=== PATIENT | male | born 1960 | race Caucasian/White ===

== ENCOUNTER 2017-02-08 16:24 | Emergency (ER) | payer BC ==
[~2017-02-08] VITALS: Ht 193 cm; Wt 111.4 kg
[2017-02-08 16:25] VITALS: TEMP 98
[2017-02-08] MEDS ORDERED: FENTANYL 50MCG TD (17:27)
[2017-02-08] MEDS ORDERED: SYNTHROID0.3 MG PO (17:28)
[2017-02-08] MEDS ORDERED: SINGULAIR 110 MG/TAB PO (17:29)
[2017-02-08] MEDS ORDERED: FLEXERIL 1010 MG/TAB PO (17:29)
[2017-02-08] MEDS ORDERED: AMITRIPTYLINE H50 M1 PO (17:30)
[2017-02-08] MEDS ORDERED: NORCO 325 MG-51 TAB PO (18:09)
[2017-02-08 18:16] VITALS: BP 166/87; PULSE 84
== END 2017-02-08 18:28 | disposition home or self-care (01) ==
LOC: COL.ER 16:24
DX: S93.402A Sprain of unspecified ligament of left ankle, initial encounter (principal); S50.312A Abrasion of left elbow, initial encounter; E05.00 Thyrotoxicosis with diffuse goiter without thyrotoxic crisis or storm; Z87.39 Personal history of other diseases of the musculoskeletal system and connective tissue; W18.39XA Other fall on same level, initial encounter; X50.0XXA Overexertion from strenuous movement or load, initial encounter; Y93.02 Activity, running